=== PATIENT | female | born 1980 | race Caucasian/White ===

== ENCOUNTER 2018-05-17 14:03 | Emergency (ER) | payer MEDICAID ==
[~2018-05-17] VITALS: Ht 167.6 cm; Wt 63.5 kg
[2018-05-17 14:25] VITALS: BP 112/75
--- NOTE | 2018-05-17 14:57 | Emergency Room Report ---
History of Present Illness General Chief Complaint: Skin Rash/Abscess Source: Patient Present Illness HPI 37-year-old female patient presents the ER complaining of "infection" near her right eyebrow for the past 3 days. Reports symptoms began after using "dirty tweezers". Reports bump that has drained. Reports tender to palpation. Denies fever, chest pain, shortness of breath, vomiting. Reports received tetanus vaccination within the last year.. Denies other aggravating or relieving factors. Denies history of drug use. Allergies: Coded Allergies: No Known Allergies (Unverified , 08/05/12) Patient History Past Medical History: see triage record Last Menstrual Period: 1-14 Now: No Reviewed Nursing Documentation: PMH: Agreed; PSxH: Agreed Nursing Documentation-PMH Past Medical History: No Stated History Review of Systems All Other Systems: negative except mentioned in HPI Physical Exam Vital Signs Date Time Temp Pulse Resp B/P (MAP) Pulse Ox O2 Delivery O2 Flow Rate FiO2 05/17/18 14:25 98.1 88 18 112/75 100 Room Air Sp02 EP Interpretation: reviewed, normal General Appearance: well appearing, no apparent distress, alert, GCS 15, non- toxic Head: normocephalic, atraumatic Eyes: bilateral eye normal inspection, bilateral eye PERRL ENT: hearing grossly normal, normal pharynx, no angioedema, normal voice, uvula midline, moist mucus membranes Neck: full range of motion Respiratory: lungs clear, normal breath sounds, no rhonchi, no respiratory distress, no accessory muscle use, no wheezing, speaking full sentences Cardiovascular #1: regular rate, rhythm, no edema Musculoskeletal: back normal, digits/nails normal, gait/station normal, normal range of motion, non-tender Neurologic: alert, oriented x3, responsive, motor strength/tone normal, sensory intact Psychiatric: mood/affect normal Skin: other - 1 cm circular abscess noted near right eyebrow, drainage noted, mild fluctuance, no surrounding erythema or Medical Decision Making PA Attestation Dr. Arndt is my supervising Physician whom patient management has been discussed with. Diagnostic Impression: Primary Impression: Abscess ER Course Pt. presents to the ED c/o bump near right eye that "is infected". Ddx considered but are not limited to rash, cellulitis, abscess, sebaceous cyst , carbuncle, folliculitis. Does not require imaging at this time. Vital signs: are WNL, pt. is afebrile ED INTERVENTIONS: Provided with pain medication. Cleaned with Betadine and irrigated with copious saline. Mild drainage noted, Able to express pus in the ER. Patient tolerated procedure well without complications. Did not require incision at this time. Sterile dressing applied to wound following procedure. Will discharge patient home with antibiotics. ER precautions given. Wound check in 2-3 days. DISCHARGE: -Rx provided for Keflex -Rx provided for Tylenol At this time pt. is stable for d/c to home. Patient is resting comfortably, in no acute distress, nontoxic appearing. Will provide printed patient care instructions and any necessary prescriptions. Care plan and follow up instructions have been discussed with the patient prior to discharge. Patient instructed to follow-up with primary care provider in 2 - 3 days for wound recheck. Patient questions asked and answered. Patient reports understanding and agreement to treatment plan. ER precautions given. Patient instructed to return to ER immediately for any new or worsening of symptoms including but not limited to fever, worsening of pain symptoms, worsening of erythema, red streaking. - Please note that this Emergency Department Report was dictated using [employer] layer technology software, occasionally this can lead to erroneous entry secondary to interpretation by the dictation equipment. Last Vital Signs Date Time Temp Pulse Resp B/P (MAP) Pulse Ox O2 Delivery O2 Flow Rate FiO2 05/17/18 14:25 98.1 88 18 112/75 100 Room Air Status: improved Disposition: HOME, SELF-CARE Condition: Stable Scripts Acetaminophen* (TYLENOL EXTRA STRENGTH*) 500 Mg Tablet 500 MG ORAL Q8H PRN for Prn Headache/Temp > 101, #30 TAB 0 Refills Prov: Syed Pinzon P.A. 05/17/18 Cephalexin* (KEFLEX*) 500 Mg Capsule 500 MG ORAL EVERY 12 HOURS, #14 CAP 0 Refills Prov: Syed Pinzon P.A. 05/17/18 Referrals: NOT CHOSEN [facility]/,REFERRING (PCP) Patient Instructions: Abscess Additional Instructions: Followup with PCP in 2-3 days for wound check. Take medications as instructed. Patient questions asked and answered. Apply warm compresses to affected area. Keep wound clean and dry. ER precautions given. Return to ER for new or worsening of symptoms including but not limited to chest pain, SOB, red streaking, worsening of abscess, intractible vomiting. Syed Pinzon May 17, 2018 14:57
[2018-05-17] MEDS ORDERED: Tetanus/Diptheria/Pertussis Vaccine 0.5ml Syr IM ONE (15:00)
[2018-05-17] MEDS ORDERED: Lidocaine 1% MPF 10mg/ml 5ml IM ONE (15:00)
[2018-05-17] MEDS ORDERED: Acetaminophen 500mg (ES) tab ORAL ONE (15:00)
[2018-05-17] MEDS ORDERED: CEPHALEXIN500 MG ORAL (15:10)
[2018-05-17] MEDS ORDERED: TYLENOL EXTRA500 MG ORAL (15:10)
--- NOTE | 2018-05-17 15:17 | NUR ---
ED Nurse Note: Pt. AAOx4. ambulatory. pt stated she is having an infection to right eyebrow area after using dirty tweezers
[2018-05-17 15:23] VITALS: BP 112/75
--- NOTE | 2018-05-17 15:23 | NUR ---
ED Nurse Note: Pt. AAOx4. ambulatory. left with steady gait. Pt. education done regarding d/c papers and prescriptions. Pt. verbalized the understanding. VSS. ID armband removed.Left with all her belongings
== END 2018-05-17 15:23 | disposition home or self-care (01) ==
LOC: EMR 14:45
DX: H44.001 Unspecified purulent endophthalmitis, right eye (principal); Z23 Encounter for immunization
CPT/HCPCS: 99283